=== PATIENT | female | born 1965 | race Caucasian/White ===

== ENCOUNTER 2017-02-28 04:21 | Emergency (ER) | payer BC ==
[~2017-02-28] VITALS: Ht 172.7 cm; Wt 65.1 kg
[2017-02-28 04:25] VITALS: TEMP 37; Ht 172.7 cm; Wt 65.1 kg
[2017-02-28] MEDS ORDERED: SODIUM CHLORIDE 0.9% 1000ML 1,000 ML IV STA (04:36)
[2017-02-28 04:38] VITALS: O2SAT 98
--- NOTE | 2017-02-28 04:40 | EMERGENCY ROOM VISIT NOTE ---
History First contact with patient: 04:27 Chief Complaint: RIB PAIN Stated Complaint: PAIN IN RIGHT SIDE UNDER RIBS History of Present Illness The patient is a 51 year old female who presents to the Emergency Room with complaints of right rib pain. The patient states that she has had pain in the right ribs for the past 2 weeks. The patient states that a few weeks ago, she fell against a wagon and is unsure if this could be causing her pain. She states the pain initially improved slightly, but then worsened. She rates the discomfort a 7/10 and states it is worse with deep breath, sneeze or cough. She denies any associated shortness of breath, but does state that it is difficult to take a deep breath due to pain. She denies nausea, vomiting, fevers or urinary symptoms. She denies any personal or family history of blood clots. She does not smoke or take control pills/estrogen. She denies any recent long trips. She denies any history of similar symptoms. Review of Systems A complete 10 point review of systems was reviewed with the patient with pertinent positives and negatives as per history of present illness. All else were negative. Social History Smoking Status: Never Smoker Current/Historical Medications No Active Prescriptions or Reported Meds Allergies Coded Allergies: No Known Allergies (Unverified , 02/28/17) Physical Exam Vital Signs Date Time Temp Pulse Resp B/P (MAP) Pulse Ox O2 Delivery O2 Flow Rate FiO2 02/28/17 06:41 121/75 02/28/17 06:05 60 14 98 02/28/17 06:01 136/75 02/28/17 05:35 66 18 99 02/28/17 05:34 67 19 117/72 99 Room Air 02/28/17 04:45 68 02/28/17 04:38 98 Room Air 02/28/17 04:38 79 22 123/84 97 Room Air 02/28/17 04:25 37.0 75 18 123/83 99 Room Air Physical Exam VITALS: Vitals are noted on the nurse's note and reviewed by myself. Vital signs stable. GENERAL: This is a 51-year-old female, in no acute distress, nondiaphoretic, well-developed well-nourished. SKIN: No rashes or bruising noted to the right flank. HEART: Regular rate and rhythm without murmurs gallops or rubs. LUNGS: Clear to auscultation bilaterally without wheezes, rales or rhonchi. CHEST: There is some reproducible tenderness to the right lateral chest wall. ABDOMEN: Positive bowel sounds x 4. Tenderness and mild guarding with palpation of the epigastric region and right upper quadrant. NEURO: Patient was alert and oriented to person place and time. Medical Decision & Procedures ER Provider Diagnostic Interpretation: CHEST ONE VIEW PORTABLE FINDINGS: The bones soft tissues and hemidiaphragms are normal. The cardiomediastinal silhouette is normal. The lungs are clear. The pulmonary vasculature is normal. IMPRESSION: Negative chest. US RUQ: Cyst involving the left lobe of the liver measuring up to 1.3 cm. Gallbladder is unremarkable with no stones or cholecystitis. Common bile duct measures 2 mm. Incidental finding of pericardial effusion. No other abnormalities. Radiologist: Gregg Miller MD CHEST CT WITH CONTRAST CT DOSE: 207.31 mGy.cm HISTORY: right rib pain, ?pericardial effusion on us TECHNIQUE: Multiaxial CT images of the chest were performed following the intravenous administration of contrast. COMPARISON: None. FINDINGS: The lungs are clear. The mediastinal vascular structures are within normal limits. No mediastinal or hilar lymphadenopathy. No pleural effusion or pneumothorax. Limited views of the upper abdomen demonstrate a normal liver and spleen. IMPRESSION: No significant abnormality identified within the chest. Laboratory Results 02/28/17 04:35 Red Blood Count 3.73, Mean Corpuscular Volume 90.3, Mean Corpuscular Hemoglobin 31.4, Mean Corpuscular Hemoglobin Concent 34.7, Mean Platelet Volume 9.8, Neutrophils (%) (Auto) 64.6, Lymphocytes (%) (Auto) 22.5, Monocytes (%) (Auto) 7.8, Eosinophils (%) (Auto) 4.5, Basophils (%) (Auto) 0.6, Neutrophils # (Auto) 4.13, Lymphocytes # (Auto) 1.44, Monocytes # (Auto) 0.50, Eosinophils # (Auto) 0.29, Basophils # (Auto) 0.04 02/28/17 04:35 Test 02/28/17 04:35 02/28/17 04:40 02/28/17 04:50 White Blood Count 6.40 K/uL (4.8-10.8) Red Blood Count 3.73 M/uL (4.2-5.4) Hemoglobin 11.7 g/dL (12.0-16.0) Hematocrit 33.7 % (37-47) Mean Corpuscular Volume 90.3 fL (80-100) Mean Corpuscular Hemoglobin 31.4 pg (25-34) Mean Corpuscular Hemoglobin Concent 34.7 g/dl (32-36) Platelet Count 163 K/uL (130-400) Mean Platelet Volume 9.8 fL (7.4-10.4) Neutrophils (%) (Auto) 64.6 % Lymphocytes (%) (Auto) 22.5 % Monocytes (%) (Auto) 7.8 % Eosinophils (%) (Auto) 4.5 % Basophils (%) (Auto) 0.6 % Neutrophils # (Auto) 4.13 K/uL (1.4-6.5) Lymphocytes # (Auto) 1.44 K/uL (1.2-3.4) Monocytes # (Auto) 0.50 K/uL (0.11-0.59) Eosinophils # (Auto) 0.29 K/uL (0-0.5) Basophils # (Auto) 0.04 K/uL (0-0.2) RDW Standard Deviation 39.4 fL (36.4-46.3) RDW Coefficient of Variation 12.0 % (11.5-14.5) Immature Granulocyte % (Auto) 0.0 % Immature Granulocyte # (Auto) 0.00 K/uL (0.00-0.02) Anion Gap 7.0 mmol/L (3-11) Est Creatinine Clear Calc Drug Dose 72.9 ml/min Estimated GFR () 84.6 Estimated GFR (Non- 73.0 BUN/Creatinine Ratio 17.2 (10-20) Calcium Level 8.8 mg/dl (8.5-10.1) Total Bilirubin 0.6 mg/dl (0.2-1) Aspartate Amino Transf (AST/SGOT) 21 U/L (15-37) Alanine Aminotransferase (ALT/SGPT) 26 U/L (12-78) Alkaline Phosphatase 55 U/L (45-117) Troponin I < 0.015 ng/ml (0-0.045) Total Protein 7.3 gm/dl (6.4-8.2) Albumin 4.3 gm/dl (3.4-5.0) Globulin 3.0 gm/dl (2.5-4.0) Albumin/Globulin Ratio 1.4 (0.9-2) Lipase 205 U/L (73-393) Urine Color YELLOW Urine Appearance CLEAR (CLEAR) Urine pH 5.0 (4.5-7.5) Urine Specific [place] 1.021 (1.000-1.030) Urine Protein NEG (NEG) Urine Glucose (UA) NEG (NEG) Urine Ketones NEG (NEG) Urine Occult Blood 2+ (NEG) Urine Nitrite NEG (NEG) Urine Bilirubin NEG (NEG) Urine Urobilinogen NEG (NEG) Urine Leukocyte Esterase SMALL (NEG) Urine WBC (Auto) 5-10 /hpf (0-5) Urine RBC (Auto) 5-10 /hpf (0-4) Urine Hyaline Casts (Auto) 1-5 /lpf (0-5) Urine Epithelial Cells (Auto) >30 /lpf (0-5) Urine Bacteria (Auto) NEG (NEG) Urine Test NEG (NEG) D-Dimer < 190 ug/L FEU (0-500) Medications Administered Medications (Trade) Dose Ordered Sig/Tez Route Start Time Stop Time Status Last Admin Dose Admin Sodium Chloride 1,000 ml @ 999 mls/hr Q1H1M STAT IV 02/28/17 04:36 02/28/17 05:36 DC 02/28/17 04:55 999 MLS/HR ECG Rate (beats per minute): 63 Rhythm: normal sinus Findings: no acute ischemic change, no ectopy, other (incomplete rbbb) Comparison ECG Date: no prior available ED Course The patient was evaluated as above. Labs were drawn and IV access was obtained. Patient was medicated with 1 L normal saline solution. [] was performed and read by radiology as above. Patient was reevaluated and [] []Discharge instructions were reviewed with the patient. The patient verbalized understanding of my assessment and treatment plan and was discharged home in good condition. []Case was discussed with the [] hospitalist, []. They agreed to evaluate the patient for admission. Medical Decision Differential diagnosis includes rib fracture, contusion, pulmonary embolism, cholecystitis, pancreatitis, hepatitis, pyelonephritis, kidney stone, herpes zoster, among others. The patient is a 51-year-old female who presents today complaining of right flank/right upper quadrant pain. Labs revealed no leukocytosis or electrolyte abnormalities. D-dimer was not elevated. Troponin was not elevated. Urinalysis showed some blood but is not suggestive of infection. EKG was interpreted by myself and shows no evidence of ischemia. Chest x-ray was unremarkable. Ultrasound did show an incidental small pericardial effusion. Chest CT was ordered to clarify this finding but did not show a pericardial effusion or any other acute findings. The patient has reproducible tenderness to palpation over the right ribs. I think her symptoms are due to a musculoskeletal cause. Conservative measures were discussed and she was instructed to follow up with her primary care provider this week for further evaluation. Based on the patient's presentation and work up, I feel the patient is stable for outpatient treatment. The patient was educated to return to the emergency department for any worsening of their current condition or new/concerning symptoms. She will follow up with her PCP. Impression Primary Impression: Rib pain on right side Departure Information Dispostion Home / Self-Care Condition GOOD Prescriptions No Active Prescriptions or Reported Meds Referrals Adam Vásquez M.D. (PCP) Patient Instructions My [facility] Additional Instructions You were treated in the emergency Department for right rib pain. Laboratory studies and imaging today did not show any significant findings. For pain control, you can use the following [id number] medicines (if >12 yo): - Regular strength (325mg/tab) Tylenol (acetaminophen) 2 tabs every 4-6 hours as needed. Do not exceed 12 tablets in a 24 hour period. Avoid taking more than 4 grams (4000 mg) of Tylenol per day. This includes any other sources of acetaminophen you may take on a regular basis. - Regular strength (200 mg/tab) Advil (ibuprofen) 1-2 tabs every 4-6 hours as needed. Do not exceed a dose of 3200 mg per day. Call your primary care provider today to schedule follow-up this week. Return to the emergency department with any worsening or new/concerning symptoms.
[2017-02-28 04:52] LABS: BASO % 0.6 %; BASO ABS # 0.04 K/uL (0-0.2); COMPLETE YES; EOS % 4.5 %; HEMATOCRIT 33.7 % (37-47); LYMPH % 22.5 %; LYMPH ABS # 1.44 K/uL (1.2-3.4); MEAN CELL VOLUME 90.3 fL (80-100); MEAN CORPUSCULAR HEMOGLOBIN 31.4 pg (25-34); MEAN CORPUSCULAR HGB CONC 34.7 g/dl (32-36); MEAN PLATELET VOLUME 9.8 fL (7.4-10.4); MONO % 7.8 %; NEUT % 64.6 %; PLATELET COUNT 163 K/uL (130-400); RED BLOOD COUNT 3.73 M/uL (4.2-5.4)
[2017-02-28 04:58] LABS: URINE APPEARANCE CLEAR (CLEAR); URINE BILIRUBIN NEG (NEG); URINE COLOR YELLOW; URINE EPITHELIAL CELL AUTO >30 /lpf (0-5); URINE NITRITE NEG (NEG); URINE SPECIFIC GRAVITY 1.021 (1.000-1.030); UROBILINOGEN NEG (NEG); ZZUR CULT IF INDIC CLEAN CATCH NO
[2017-02-28 05:03] LABS: MANUAL MICROSCOPIC REQUIRED? NO; REVIEW REQ? NO
[2017-02-28 05:07] LABS: BUN/CREATININE RATIO 17.2 (10-20); CALCIUM 8.8 mg/dl (8.5-10.1); CREATININE 0.9 mg/dl (0.60-1.20); POTASSIUM 3.9 mmol/L (3.5-5.1)
[2017-02-28 05:10] LABS: ALB/GLOB RATIO 1.4 (0.9-2)
[2017-02-28] MEDS ORDERED: OPTIRAY 320 IV PRN (06:30)
--- NOTE | 2017-02-28 06:34 | DIAGNOSTIC IMAGING REPORT ---
CHEST ONE VIEW PORTABLE CLINICAL HISTORY: Right flank/rib pain COMPARISON STUDY: No previous studies for comparison. FINDINGS: The bones soft tissues and hemidiaphragms are normal. The cardiomediastinal silhouette is normal. The lungs are clear. The pulmonary vasculature is normal. IMPRESSION: Negative chest. Electronically signed by: Julio Olguin M.D. 02/28/2017 6:33 AM Dictated Date/Time: 02/28/2017 6:33 AM
[2017-02-28 07:00] VITALS: BP 119/70; PULSE 60; O2SAT 97
--- NOTE | 2017-02-28 07:06 | DIAGNOSTIC IMAGING REPORT ---
CHEST CT WITH CONTRAST CT DOSE: 207.31 mGy.cm HISTORY: right rib pain, ?pericardial effusion on us TECHNIQUE: Multiaxial CT images of the chest were performed following the intravenous administration of contrast. COMPARISON: None. FINDINGS: The lungs are clear. The mediastinal vascular structures are within normal limits. No mediastinal or hilar lymphadenopathy. No pleural effusion or pneumothorax. Limited views of the upper abdomen demonstrate a normal liver and spleen. IMPRESSION: No significant abnormality identified within the chest. Electronically signed by: Julio Olguin M.D. 02/28/2017 7:05 AM Dictated Date/Time: 02/28/2017 7:02 AM
--- NOTE | 2017-02-28 07:22 | DIAGNOSTIC IMAGING REPORT ---
ULTRASOUND RIGHT UPPER QUADRANT ABDOMEN CLINICAL HISTORY: Right upper quadrant abdominal pain. COMPARISON STUDY: No priors. TECHNIQUE: Real-time, grayscale, and color flow sonography of the right upper quadrant of the abdomen was performed. Images are reviewed in the transverse and longitudinal planes. FINDINGS: Liver: The liver is normal in size and echotexture. There is no intrahepatic biliary ductal dilatation. The main portal vein is patent. A 1.7 cm hepatic cyst is incidentally noted. Gallbladder: The gallbladder is normal in appearance. No gallstones are identified. There is no gallbladder wall thickening or pericholecystic fluid. A sonographic Beauchamp's sign is reportedly absent. The common bile duct measures up to 0.2 cm in diameter. Pancreas: Visualized portions of the pancreatic head and body are normal in appearance. The splenic vein is patent. Right kidney: Survey images of the right kidney demonstrate normal size and echotexture. There is no hydronephrosis. Ascites: None. Lower chest: A small pericardial effusion is incidentally noted. IMPRESSION: 1. Unremarkable sonographic assessment of the right upper quadrant. No gallstones are identified. 2. A small pericardial effusion is incidentally noted. Electronically signed by: Tulio Rinaldi M.D. 02/28/2017 7:21 AM Dictated Date/Time: 02/28/2017 7:19 AM
== END 2017-02-28 07:32 | disposition home or self-care (01) ==
LOC: C.EDB 04:22 → C.EDA 07:32
DX: R07.81 Pleurodynia (principal)

== ENCOUNTER → 2017-09-07 | Outpatient (CLI) | payer BC ==
--- NOTE | 2017-09-07 14:52 | MAMMOGRAPHY REPORT ---
BILATERAL DIGITAL SCREENING MAMMOGRAM TOMOSYNTHESIS WITH CAD: 09/07/2017 CLINICAL HISTORY: Routine screening. Patient has no complaints. TECHNIQUE: Breast tomosynthesis in addition to standard 2D mammography was performed. Current study was also evaluated with a Computer Aided Detection (CAD) system. COMPARISON: Comparison is made to exams dated: 07/13/2016 mammogram, 07/08/2015 mammogram, 04/12/2013 m ammogram, 03/28/2011 mammogram, and 03/26/2010 mammogram - [facility]. BREAST COMPOSITION: The tissue of both breasts is heterogeneously dense, which may obscure small mas ses. FINDINGS: No suspicious masses, calcifications, or areas of architectural distortion are noted in ei ther breast. There has been no significant interval change compared to prior exams. IMPRESSION: ACR BI-RADS CATEGORY 1: NEGATIVE There is no mammographic evidence of malignancy. A 1 year screening mammogram is recommended. The pa tient will receive written notification of the results. Approximately 10% of breast cancers are not detected with mammography. A negative mammographic report should not delay biopsy if a clinically suggestive mass is present. Kerline Freeman M.D. /:09/07/2017 14:46:47 Senior User Experience Architect: Perla DUKE(Dev)(M), [facility] letter sent: Normal 1/2 BI-RADS Code: ACR BI-RADS Category 1: Negative
== END | disposition home or self-care (01) ==
LOC: C.MAMM 11:00
PROVIDERS: ATTEND Family Medicine
DX: Z12.31 Encounter for screening mammogram for malignant neoplasm of breast (principal)